=== PATIENT | female | born 1940 | race Caucasian/White ===

== ENCOUNTER 2017-06-02 09:38 | Emergency (ER) | payer MEDICARE, OTHER ==
[2017-06-02] MEDS ORDERED: ASPIRIN 81 MG TAB.CHEW PO ONE (10:03)
--- NOTE | 2017-06-02 10:10 | ERNOTE ---
Date of Service: 06/02/17 Time Seen by Provider: 06/02/17 09:52 Stated Complaint: COUGH Presenting Symptoms:: cough, sore throat, runny nose Source: patient Exam Limitations: no limitations Immunizations: IMMUNIZATION HX Immunizations Up to Date Yes History of Influenza Vaccine No Hx Pneumococcal Vaccination No Allergies/Adverse Reactions: Allergies No Known Allergies Allergy (Verified 06/20/16 15:23) Home Medications: HOME MEDICATIONS Bimatoprost [Lumigan 0.01% Opth Solution] 2.5 ml OP HS 03/04/15 [Last Taken Unknown] Omeprazole Magnesium [Prilosec Otc] 20 mg PO DAILY PRN 03/04/15 [Last Taken Unknown] Cetirizine HCl [Allergy Relief] 10 mg PO DAILY #30 tablet 05/29/16 [Last Taken Unknown] Propranolol HCl [Propranolol E.r. (Inderal LA)] 60 mg PO HS #30 capsule.sa 06/20 [Last Taken Unknown] Benzonatate [Tessalon] 100 mg PO TID #30 capsule 06/02/17 [Last Taken Unknown] Fluticasone Propionate [Flonase] 1 spray NS BID #1 inhaler 06/02/17 [Last Taken Unknown] - History of Present Ilness Narrative: Pt. comes in with one day history of cough, rhinorrhea, sore throat and post nasal drip. Pt. denies any lung disease and denies ever having a cold this bad. Pt. also states that this morning at 0900 she had 5 minutes of severe substernal chest pain that is resolved at this time. Pt. states that she has been taking nasal spray for he symptoms without relief. Review of Systems - Review of Systems Constitutional: Present: malaise. Absent: fever, chills, diaphoresis, fatigue, weight loss, decreased activity level EYE: Present: no symptoms reported ENT: Present: ear pain, nose congestion, nasal drainage, sore throat. Absent: ear discharge, pulling on ears, nose pain, throat swelling Respiratory: Present: cough, orthopnea. Absent: shortness of breath, wheezing, stridor Cardiology: Present: chest pain. Absent: palpitations, edema Gastrointestinal/Abdominal: Present: no symptoms reported. Absent: nausea, vomiting, diarrhea Genitourinary: Present: no symptoms reported Musculoskeletal: Present: no symptoms reported. Absent: back pain, joint pain Skin: Present: no symptoms reported. Absent: rash, dryness, lesions, lumps Neurological: Present: no symptoms reported. Absent: dizziness/light-headedness All Other Systems: All systems neg except as marked - Patient's Past Medical History Patient History - Medical: GERD, Glaucoma Patient History - Cardiac/Respiratory: Hypertension Patient History - Cancer: No Hx of Cancer Patient History - Surgical Procedures: Appendectomy, Cataracts, Cholecystectomy , D & C, Other Patient History - Other: None LMP (females 10-50): Menopausal - Social History Living Situations: home Abuse History: No History of abuse Psych History: No pertinent hx Smoking Status: Never smoker Alcohol Use: none Drug Use: none - Immunizations Immunizations Up to Date: Yes Hx Pneumococcal Vaccination: No History of Influenza Vaccine: No Physical Exam - Physical Exam General Appearance: Present: wd/wn, alert, no apparent distress Head Exam: Present: normal inspection, no evidence of injury Eye Exam: Normal inspection: bilateral, PERRL: bilateral, EOMI: bilateral Ears, Nose, Throat: Present: normal except -, nasal congestion, pharyngeal erythema. Absent: sinus pain/drainage, tonsillar exudate, tonsillar swelling, dry mucous membranes Neck: Present: nontender, supple, full range of motion, lymphadenopathy (L) - L anterior cervical. Absent: lymphadenopathy (R) Respiratory: Present: no respiratory distress, normal breath sounds, no accessory muscle use, chest nontender, lungs clear. Absent: crackles, rales, rhonchi Cardiovascular/Chest: Present: regular rate, rhythm, no murmur, normal peripheral pulses Gastrointestinal/Abdominal: Present: normal bowel sounds Back Exam: Present: normal inspection Extremity Exam: Present: normal inspection Neurological Exam: Present: alert, oriented, normal mood/affect, no motor/ sensory deficits Skin Exam: Present: normal color, warm/dry. Absent: pallor, skin rash ED Progress - Results and Orders Patient's Lab Results:: I have reviewed the patient's lab results. - Vital Signs Patient's Vital Signs:: I have reviewed the patient's vital signs. Vital Signs: Vital Signs 06/02/17 09:42 Temperature 37.3 C Pulse Rate 67 Respiratory 16 Rate Blood Pressure 205/81 O2 Sat by Pulse 96 Oximetry - EKG EKG: other - Sinus rhythm with inferior changes no acute EKG read: Reviewed by me - Interp by Dr Stout - X-Ray X-Ray #1 X-Ray: chest Interpretation: Reviewed by me X-ray Comments: No acute cardiopulmonary process. Stable findings as in report. - Progress/Reassessment Chief Complaint: Upper Respiratory Symptoms Progress:: Unchanged Departure Clinical Impression: Bronchitis Upper respiratory infection Qualifiers: URI type: unspecified viral URI Qualified Code(s): J06.9 - Acute upper respiratory infection, unspecified; B97.89 - Other viral agents as the cause of diseases classified elsewhere; B97.89 - Other viral agents as the cause of diseases classified elsewhere - Departure Disposition: Home self-care Condition: Good Instructions: Acute Bronchitis, Upper Respiratory Infection, Adult, Easy-to- Read Additional Instructions: Please follow up with primary provider in 2-3 days. Please stop nasal spray you are currently taking and only take the medicines prescribed to you. Referrals: Binh Couch MD [Primary Care Provider] - Prescriptions: Benzonatate [Tessalon] 100 mg PO TID #30 capsule Fluticasone Propionate [Flonase] 1 spray NS BID #1 inhaler
[2017-06-02] MEDS ORDERED: ASPIRIN 81 MG TAB.CHEW ONE (10:12)
[2017-06-02 10:21] LABS: Hematocrit 42.8 % (37.0-47.0); Hemoglobin 14.7 gm/dL (12.5-16.0); Mean Corpuscular Hemoglobin 31.6 pg (27-31); Mean Corpuscular Hgb Conc 34.3 g/dl (32-36); Mean Platelet Volume 9.4 fl (6.0-9.5); Platelet Count 305 K/mm3 (150-450); Red Blood Count 4.65 M/mm3 (4.2-5.4); Red Cell Distribution Width 14.3 % (11.5-14.0)
[2017-06-02 10:33] LABS: Prothrombin Time (Patient) 10.3 Seconds (9.4-11.4)
[2017-06-02 10:40] LABS: ALT 52 U/L (19-67); AST 77 U/L (0-48); Albumin * 3.8 gm/dl (3.4-5.0); Alkaline Phosphatase * 97 U/L (50-170); Anion Gap 10.5 mmol/L (6.8-13.8); BUN/Creatinine Ratio 15.7 (9.0-21.6); Bilirubin, Total 0.9 mg/dL (0.0-1.1); Blood Urea Nitrogen 11 mg/dL (3-23); Ca. Corrected For Albumin 9.2 mg/dL (8.4-10.2); Calcium * 9.4 mg/dL (7.9-10.9); Carbon Dioxide 32.1 mmol/L (24-32.6); Chloride 104 mmol/L (97-106); Glucose * 115 mg/dL (70-110); Potassium 4.6 mmol/L (3.4-4.6); Sodium 142 mmol/L (132-142); Total Protein 7.9 gm/dL (6.2-8.2); Troponin I Less than 0.017 ng/ml (0.00-0.10)
[2017-06-02 10:43] LABS: INR 0.99 INR (0.90-1.10); Partial Thrombolplastin Time 24.7 Seconds (24-32)
[2017-06-02 11:25] VITALS: BP 148/61
== END 2017-06-02 11:38 | disposition home or self-care (01) ==
LOC: ER 09:38
DX: J40 Bronchitis, not specified as acute or chronic (principal); J06.9 Acute upper respiratory infection, unspecified; B97.89 Other viral agents as the cause of diseases classified elsewhere